=== PATIENT | male | born 1970 | race Caucasian/White ===

== ENCOUNTER 2017-01-27 16:37 | Emergency (ER) | payer OTHER ==
[2017-01-27 16:48] VITALS: RESP 16; TEMP 98.2; O2SAT 94
--- NOTE | 2017-01-27 17:04 | EDPHY ---
H & P Stated Complaint: " i think im passing kidney stone" L flank, lumbar pain Time Seen by Provider: 01/27/17 16:48 HPI/ROS: Chief complaint: Left flank pain HPI: 47-year-old male who is presenting with left flank pain that is radiating to his left groin. This has been going on the last 5 days. His urine has been been darker. He thinks he may have passed a kidney stone last week but has never had this prior to this time. No fevers or chills. Some nausea and vomiting. At worst pain is about an 8/10. No history of the same. No central abdominal pain. ROS: 10 point Review of Systems is negative except as noted in the HPI. Past medical history: Chronic back pain Medications: Ibuprofen Allergies: No known drug allergies Physical exam: Gen: Awake, Alert, No Distress HEENT: Nose: no rhinorrhea Eyes: PERRLA, EOMI Mouth: Moist mucosa Neck: Supple, no JVD Chest: nontender, lungs clear to auscultation Heart: S1, S2 normal, no murmur Abd: Soft, non-tender, no guarding Genital: Testes are distended, there is normal lie. There is no erythema. There is no tenderness. He has normal cremasteric. There are no lesions. There is no urethral discharge. Back: no CVA tenderness, no midline tenderness Ext: no edema, non-tender Skin: no rash Neuro: CN II-XII intact, Sensation grossly intact, Strength 5/5 in bilateral upper and lower extremities - Personal History Current Tetanus/Diphtheria Vaccine: Unsure Current Tetanus Diphtheria and Acellular Pertussis (TDAP): Unsure - Medical/Surgical History Hx Asthma: No Hx Chronic Respiratory Disease: No Hx Diabetes: No Hx Cardiac Disease: No Hx Renal Disease: No Hx Cirrhosis: No Hx Alcoholism: No Hx HIV/AIDS: No Hx Splenectomy or Spleen Trauma: No Other PMH: Laminectomy L4, L5. R tib fib ORIF - Social History Smoking Status: Heavy smoker Constitutional: Initial Vital Signs Temperature (C) 36.8 C 01/27/17 16:44 Heart Rate 90 01/27/17 16:44 Respiratory Rate 16 01/27/17 16:44 Blood Pressure 101/73 01/27/17 16:44 O2 Sat (%) 94 01/27/17 16:44 O2 Delivery Mode Room Air Allergies/Adverse Reactions: No Known Allergies Allergy (Unverified 06/11/14 11:52) Home Medications: Medication Instructions Recorded Hydrocodone/APAP 5/325 [Cecil 1 tab PO Q4 PRN #15 tab 06/11/14 5/325 (RX)] Ibuprofen [Motrin (*)] 600 mg PO Q6 #15 tab 06/11/14 Meclizine HCl [Meclizine HCl 25 mg 25 mg PO TID PRN #10 tab 09/27/16 (RX,OTC)] Medical Decision Making - Diagnostics Imaging: CT scan abdomen pelvis noncontrast is negative per Dr. Rod. No evidence of ureteral calculi, hydronephrosis, or any other intra-abdominal process to explain his pain. ED Course/Re-evaluation: Urinalysis is negative. CT scan is negative for evidence of acute renal colic. Patient's symptoms are likely secondary to musculoskeletal back pain. Will treat with nonsteroidals and referred for outpatient follow-up. - Data Points Laboratory Results: Laboratory Results 01/27/17 17:18 01/27/17 01/27/17 17:18 17:18 Sodium 136 mEq/L mEq/L (134-144) Potassium 3.3 mEq/L L mEq/L (3.5-5.2) Chloride 97 mEq/L mEq/L (97-110) Carbon Dioxide 25 mEq/l mEq/l (22-31) Anion Gap 14 mEq/L mEq/L (8-16) BUN 32 mg/dL H mg/dL (7-23) Creatinine 1.6 mg/dL H mg/dL (0.7-1.3) Estimated GFR 47 Glucose 119 mg/dL H mg/dL (70-100) Calcium 9.2 mg/dL mg/dL (8.5-10.4) Urine Color YELLOW Urine Appearance HAZY Urine pH 5.0 (5.0-7.5) Ur Specific [place] 1.023 (1.002-1.030) Urine Protein NEGATIVE (NEGATIVE) Urine Ketones NEGATIVE (NEGATIVE) Urine Blood NEGATIVE (NEGATIVE) Urine Nitrate NEGATIVE (NEGATIVE) Urine Bilirubin NEGATIVE (NEGATIVE) Urine Urobilinogen NEGATIVE EU EU (0.2-1.0) Ur Leukocyte Esterase NEGATIVE (NEGATIVE) Urine Glucose NEGATIVE (NEGATIVE) Medications Given: Discontinued Medications Sodium Chloride (Ns) 1,000 mls @ 0 mls/hr IV ONCE ONE PRN Reason: Wide Open Stop: 01/27/17 18:08 Last Admin: 01/27/17 18:19 Dose: 1,000 mls Departure - Departure Disposition: Home, Routine, Self-Care Clinical Impression: Back pain Condition: Good Instructions: Back Pain (ED), Lower Back Exercises (ED) Additional Instructions: Return to the emergency depart for increasing pain, fevers, chills, nausea, vomiting, or any other concerns. Follow up with primary care doctor in 2 days for further evaluation. You may take ibuprofen and acetaminophen as needed for pain. Referrals: NONE *PRIMARY CARE P,. [Primary Care Provider] - As per Instructions Bladimir Jordan MD [Medical Doctor] - As per Instructions
[2017-01-27 17:30] LABS: COLOR YELLOW; LEUKOCYTE ESTERASE,URINE NEGATIVE (NEGATIVE); NITRITE,URINE NEGATIVE (NEGATIVE)
[2017-01-27 17:44] LABS: ANION GAP 14 mEq/L (8-16); CALCIUM 9.2 mg/dL (8.5-10.4); CARBON DIOXIDE 25 mEq/l (22-31); CHLORIDE 97 mEq/L (97-110); CREATININE 1.6 mg/dL (0.7-1.3); GLOMERULAR FILTRATION RATE 47; GLUCOSE 119 mg/dL (70-100); POTASSIUM 3.3 mEq/L (3.5-5.2); SODIUM 136 mEq/L (134-144)
[2017-01-27] MEDS ORDERED: NS 1,000 ML IV ONE (18:07)
[2017-01-27] MEDS ORDERED: ACETAMINOPHEN 500 MG TAB PO ONE (18:26)
[2017-01-27 19:07] VITALS: BP 141/88; PULSE 97
== END 2017-01-27 19:06 | disposition home or self-care (01) ==
DX: M54.9 Dorsalgia, unspecified (principal); F17.200 Nicotine dependence, unspecified, uncomplicated

== ENCOUNTER → 2017-05-07 | Outpatient (CLI) | payer OTHER | LOC: BMCIMAGING 14:03 | PROVIDERS: ATTEND Nurse Practitioner Adult Health | DX: M19.041 Primary osteoarthritis, right hand (principal); M19.042 Primary osteoarthritis, left hand ==

== ENCOUNTER 2017-06-29 16:34 | Emergency (ER) | payer OTHER ==
--- NOTE | 2017-06-29 16:32 | EDPHY ---
H & P Constitutional: Initial Vital Signs Temperature (C) 36.9 C 06/29/17 16:52 Heart Rate 100 06/29/17 16:52 Respiratory Rate 16 06/29/17 16:52 Blood Pressure 169/108 H 06/29/17 16:52 O2 Sat (%) 95 06/29/17 16:52 O2 Delivery Mode Room Air Allergies/Adverse Reactions: No Known Allergies Allergy (Verified 06/29/17 16:44) Home Medications: Medication Instructions Recorded Amlodipine Besylate 06/29/17 Gabapentin 06/29/17 Medical Decision Making ED Course/Re-evaluation: CHIEF COMPLAINT: Chest pain HISTORY OF PRESENT ILLNESS: The patient is a 47 y/o male who presents via EMS with dull left-sided chest pain that began gradually while at work. He has a history of hypercholesteremia, hypertension, and alcohol abuse. States he woke up normal. Throughout the day he started feeling dizzy, diaphoretic, and weak; and then developed left-sided chest pain. His chest pain persisted until nitro was administered via EMS. He currently has chest pain and minor tingling in his left arm. He has had similar tingling in his left arm in the past which he believes is due to a cervical nerve impingement. Denies any abnormal or stressful events, recent travel, or anxiety. 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 REVIEW OF SYSTEMS: A 10 point review of systems was performed and is negative with the exception of the elements mentioned in the history of present illness. PHYSICAL EXAM: HR, BP, O2 Sat, RR. Temp noted General Appearance: Alert, well hydrated, appropriate, and non-toxic appearing. Head: Atraumatic without scalp tenderness or obvious injury Eyes: Pupils equal, round, reactive to light and accommodation, EOMI, no trauma , no injection. Ears: Clear bilaterally, no perforation, normal landmarks Nose: Atraumatic, no rhinorrhea, clear. Throat: Mucus membranes moist. Neck: Supple. Respiratory: No retractions, no distress, no wheezes, and no accessory muscle use. Lungs are clear to auscultation bilaterally. Cardiovascular: Mildly tachycardic. No murmurs, rubs, or gallops. Good capillary refill all extremities. Gastrointestinal: Abdomen is soft, nontender, non-distended, no masses, no rebound, no guarding, no peritoneal signs. Musculoskeletal: Normal active ROM of all extremities, atraumatic. Neurological: Alert, appropriate, and interactive. Non-focal neuro,. Tremulousness. Skin: No rashes, good turgor, no nodules on palpation. 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 DIAGNOSTICS/PROCEDURES/CRITICAL CARE TIME: EKG: The 12 lead EKG was interpreted by myself. Sinus tachycardia with rate of 100. See hard copy and/or "tracemaster" electronic copy for interpretation. DIFFERENTIAL DIAGNOSIS: The differential diagnosis for the patient's chest pain included but was not limited to myocardial ischemia, pulmonary embolus, chest wall pain, pleural inflammation, and pulmonary infectious causes. MEDICAL DECISION MAKING: The patient is a 47 y/o male who presents with gradual onset chest pain that began this morning while sitting at work. He is mildly tachycardic and tremulous, but his exam is otherwise unremarkable. Plan for cardiac workup with IV, labs, and EKG. EKG shows sinus tachycardia, otherwise normal. Labs show he has hypermagnesemia , which I attribute to his alcohol abuse. He will be discharged home in good condition, with standard chest pain care and follow up instructions. He is comfortable with this plan. - Data Points Laboratory Results: Laboratory Results 06/29/17 16:37 06/29/17 16:37 06/29/17 06/29/17 06/29/17 16:37 16:37 16:37 WBC 9.81 10^3/uL H 10^3/uL (3.80-9.50) RBC 4.62 10^6/uL 10^6/uL (4.40-6.38) Hgb 14.8 g/dL g/dL (13.7-17.5) Hct 42.5 % % (40.0-51.0) MCV 92.0 fL fL (81.5-99.8) MCH 32.0 pg pg (27.9-34.1) MCHC 34.8 g/dL g/dL (32.4-36.7) RDW 11.4 % L % (11.5-15.2) Plt Count 225 10^3/uL 10^3/uL (150-400) MPV 10.5 fL fL (8.7-11.7) Neut % (Auto) 71.4 % % (39.3-74.2) Lymph % (Auto) 18.0 % % (15.0-45.0) [place] % (Auto) 8.9 % % (4.5-13.0) Eos % (Auto) 0.3 % L % (0.6-7.6) Baso % (Auto) 1.0 % % (0.3-1.7) Nucleat RBC Rel Count 0.0 % % (0.0-0.2) Absolute Neuts (auto) 7.00 10^3/uL H 10^3/uL (1.70-6.50) Absolute Lymphs (auto) 1.77 10^3/uL 10^3/uL (1.00-3.00) Absolute Monos (auto) 0.87 10^3/uL H 10^3/uL (0.30-0.80) Absolute Eos (auto) 0.03 10^3/uL 10^3/uL (0.03-0.40) Absolute Basos (auto) 0.10 10^3/uL 10^3/uL (0.02-0.10) Absolute Nucleated RBC 0.00 10^3/uL 10^3/uL (0-0.01) Immature Gran % 0.4 % % (0.0-1.1) Immature Gran # 0.04 10^3/uL 10^3/uL (0.00-0.10) PT 12.9 SEC SEC (12.0-15.0) INR 0.98 (0.83-1.16) APTT 28.1 SEC SEC (23.0-38.0) D-Dimer < 0.27 ug/mLFEU ug/mLFEU (0.00-0.50) Sodium 139 mEq/L mEq/L (134-144) Potassium 3.5 mEq/L mEq/L (3.5-5.2) Chloride 102 mEq/L mEq/L (97-110) Carbon Dioxide 18 mEq/l L mEq/l (22-31) Anion Gap 19 mEq/L H mEq/L (8-16) BUN 8 mg/dL mg/dL (7-23) Creatinine 0.7 mg/dL mg/dL (0.7-1.3) Estimated GFR > 60 Glucose 91 mg/dL mg/dL (70-100) Calcium 10.0 mg/dL mg/dL (8.5-10.4) Magnesium 1.5 mg/dL L mg/dL (1.6-2.3) Troponin I < 0.012 ng/mL ng/mL (0-0.034) NT-Pro-B Natriuret Pep 15 pg/mL pg/mL (0-125) Departure - Departure Disposition: Home, Routine, Self-Care Clinical Impression: Atypical chest pain, Vasovagal near syncope Condition: Good Instructions: Chest Pain (ED), Near Syncope (ED) Additional Instructions: 1. Increase fluid intake. 2. Purchase over the counter magnesium for your low magnesium. 3. Follow up with your primary care provider next week to discuss management of hypertension. 4. Follow up with Dr. Pace, medical information officer, for chest pain. 5. Return to the ED for severe pain, shortness of breath, or other worsening of condition. 6. Decrease alcohol intake. Referrals: Patient,NotPresent [Unknown] - As per Instructions Rubio Pace MD [Medical Doctor] - As per Instructions Report Scribed for: Black Melvin Report Scribed by: Carleen Bentley Date of Report: 06/29/17 Time of Report: 16:34
--- NOTE | 2017-06-29 16:42 | CPEKG ---
Heart Rate: 100 RR Interval: 600 P-R Interval: 140 QRSD Interval: 80 QT Interval: 352 QTC Interval: 454 P [place]: 50 QRS [place]: 63 T Wave [place]: 30 EKG Severity - OTHERWISE NORMAL ECG - EKG Impression: SINUS TACHYCARDIA Electronically Signed By: Black Melvin 29-Jun-2017 19:10:27
[2017-06-29 17:25] LABS: % IMMATURE GRANULYOCYTES 0.4 % (0.0-1.1); ABSOLUTE IMMATURE GRANULOCYTES 0.04 10^3/uL (0.00-0.10); ADD DIFF? NO; ADD MORPH? NO; ADD SCAN? NO; ATYPICAL LYMPHOCYTE FLAG 10 (0-99); FRAGMENT RBC FLAG 0 (0-99); HEMATOCRIT 42.5 % (40.0-51.0); HEMOGLOBIN 14.8 g/dL (13.7-17.5); LEFT SHIFT FLG 0 (0-99); LIPEMIA HEMOLYSIS FLAG 90 (0-99); MEAN CELL HEMOGLOBIN CONCENTR. 34.8 g/dL (32.4-36.7); MEAN PLATELET VOLUME 10.5 fL (8.7-11.7); PLATELET CLUMPS FLAG 10 (0-99); PLATELET COUNT 225 10^3/uL (150-400); RED BLOOD CELL COUNT 4.62 10^6/uL (4.40-6.38); RED CELL DISTRIBUTION WIDTH 11.4 % (11.5-15.2)
[2017-06-29 17:33] LABS: ANION GAP 19 mEq/L (8-16); CARBON DIOXIDE 18 mEq/l (22-31); CHLORIDE 102 mEq/L (97-110); CREATININE 0.7 mg/dL (0.7-1.3); GLOMERULAR FILTRATION RATE > 60; GLUCOSE 91 mg/dL (70-100); MAGNESIUM 1.5 mg/dL (1.6-2.3); POTASSIUM 3.5 mEq/L (3.5-5.2); SODIUM 139 mEq/L (134-144)
[2017-06-29 17:35] LABS: APTT 28.1 SEC (23.0-38.0); INR 0.98 (0.83-1.16); PROTIME(PATIENT) 12.9 SEC (12.0-15.0)
[2017-06-29 17:45] LABS: TROPONIN I < 0.012 ng/mL (0-0.034)
[2017-06-29 19:30] VITALS: BP 154/104; PULSE 104; RESP 18; TEMP 98.6; O2SAT 97
== END 2017-06-29 19:30 | disposition home or self-care (01) ==
LOC: EDUNIT#
DX: R07.89 Other chest pain (principal); R55 Syncope and collapse; I10 Essential (primary) hypertension

== ENCOUNTER → 2017-09-13 | Outpatient (CLI) | payer OTHER ==
[~2017-09-13] MED LIST: IOPAMIDOL (ISOVUE-300) 100 ML BTL ONE
== END ==
LOC: FIMAGING 09:59
PROVIDERS: ATTEND Internal Medicine
DX: Z87.09 Personal history of other diseases of the respiratory system (principal)
CPT/HCPCS: Q9967